=== PATIENT | male | born 1970 | race Two or more races ===

== ENCOUNTER → 2024-06-12 | Outpatient (CLI) | payer MEDICAID, SELFPAY ==
--- NOTE | 2024-06-12 10:30 | XR_ITS ---
Examination: Abdomen sonogram, complete Date and time of exam: June 12, 2024 at 10:40 AM INDICATIONS: Recurrent abdominal pain beginning one month ago. Technique: Multiple real-time grayscale transabdominal sonographic images of the abdomen have been obtained. Findings: Negative for gallstones Gallbladder wall 0.38 cm no edema Common bile duct 0.3 cm Pancreatic head 2.9 cm Aorta not enlarged Liver 13.8 cm fatty infiltration irregular contour no focal liver lesions Normal hepatopedal portal venous flow Patent IVC Right kidney 11.2 x 5.9 x 6.8 cm cortex 1.9 cm Left kidney 11.9 x 5.9 x 5.0 cm cortex 1.7 cm Mild right moderate left renal parenchymal scar formation No hydronephrosis Spleen 8.2 cm IMPRESSION: Negative for cholelithiasis Borderline thickening gallbladder wall 0.38 cm, consider HIDA scan with ejection fraction follow-up Fatty liver, suspect primary hepatocellular disease Mild right moderate left renal parenchymal scar formation
== END | disposition home or self-care (01) ==
PROVIDERS: PCP Physician Assistant Medical; Referring Provider Surgery; Visit Provider Surgery
DX: K82.8 Other specified diseases of gallbladder (principal); N28.89 Other specified disorders of kidney and ureter; K76.0 Fatty (change of) liver, not elsewhere classified
CPT/HCPCS: 76700